=== PATIENT | female | born 1955 | race African-American/Black ===

== ENCOUNTER 2018-08-13 09:36 | Emergency (ER) | payer OTHER ==
[~2018-08-13] VITALS: Ht 167.6 cm; Wt 109.1 kg
[~2018-08-13 09:36] MED LIST: AMOXICILLIN/CLA1 TA1 PO; AUGMENTIN 250 M1 TAB PO; HCTZ 25MG TAB25 MG PO; NORCO 325 MG-51 TAB PO; NORVASC 10MG10 MG PO
[2018-08-13 09:40] VITALS: TEMP 97.9
[2018-08-13] MEDS ORDERED: TOPROL XL 50MG50 MG PO (09:52)
[2018-08-13] MEDS ORDERED: HCTZ 25MG TAB25 MG PO (09:52)
[2018-08-13] MEDS ORDERED: VITAMIN D 1001000 IU PO (09:53)
[2018-08-13] MEDS ORDERED: PRENATAL MVI PO (09:53)
[2018-08-13] MEDS ORDERED: LIPITOR20 MG PO (09:54)
[2018-08-13] MEDS ORDERED: ASPIRIN 81M81 MG/TA2 PO (09:55)
[2018-08-13] MEDS ORDERED: ALLEGRA 60MG TA60 MG PO (09:55)
[2018-08-13] MEDS ORDERED: ANTIVERT 12.512.5 MG PO (09:56)
[2018-08-13 10:27] LABS: BASO % 0.4 % (0.0-2.0); EOS # 0.2 (0.0-0.7); EOS % 3.4 % (0-4.0); GRAN # 3.5 (1.4-6.5); GRAN % 70.6 % (42.2-75.2); HEMATOCRIT 39.5 % (37.0-47.0); HEMOGLOBIN 12.6 g/dl (12.5-16.0); LYMPH # 0.9 (1.2-3.4); LYMPH % 18.4 % (20.0-51.0); MEAN CELL VOLUME 76 fl (80.0-100.0); MEAN CORPUSCULAR HEMOGLOBIN 24 pg (27.0-31.0); MEAN CORPUSCULAR HGB CONC 32 g/dl (33.0-37.0); MEAN PLATELET VOLUME 10.7 fl (7.4-10.4); MONO # 0.4 (0.1-0.6); PLATELET COUNT 251 K/mm3 (130-400); RED BLOOD COUNT 5.22 M/mm3 (4.10-5.30); REDCELL DISTRIBUTION WIDTH-CV 14.7 % (11.5-14.5)
[2018-08-13 10:34] LABS: ALBUMIN 3.6 gm/dL (3.5-5.0); BILIRUBIN,TOTAL 0.6 mg/dL (0.0-1.0); CALCIUM 9.3 mg/dL (8.4-10.2); POTASSIUM 3.3 mmol/L (3.4-5.0); TOTAL PROTEIN 7.3 gm/dL (6.4-8.2)
[2018-08-13 10:55] LABS: C-REACTIVE PROTEIN 0.9 mg/dL (0.0-0.9)
[2018-08-13] MEDS ORDERED: ANTIVERT 25MG25 MG PO ×2 (11:35)
[2018-08-13 11:55] VITALS: BP 142/93; PULSE 72
[2018-08-16] MEDS ORDERED: ANTIVERT 12.512.5 MG PO (11:03)
== END 2018-08-13 12:00 | disposition home or self-care (01) ==
LOC: COL.ER 09:36
PROVIDERS: Physician Assistant
DX: R42 Dizziness and giddiness (principal); Z98.51 Tubal ligation status; Z79.82 Long term (current) use of aspirin
CPT/HCPCS: J2060; J2405

== ENCOUNTER 2020-11-01 03:40 | Emergency (ER) | payer OTHER ==
[~2020-11-01] VITALS: Ht 167.6 cm; Wt 104.5 kg
[~2020-11-01 03:40] MED LIST changes: +ALLEGRA 60MG TA60 MG PO; +ANTIVERT 12.512.5 MG PO; +ANTIVERT 25MG25 MG PO; +ASPIRIN 81M81 MG/TA2 PO; +LIPITOR20 MG PO; +PRENATAL MVI PO; +TOPROL XL 50MG50 MG PO; +VITAMIN D 1001000 IU PO
[2020-11-01 03:57] VITALS: TEMP 98
[2020-11-01 04:43] LABS: BASO % 0.5 % (0.0-2.0); EOS # 0.6 (0.0-0.7); GRAN # 3.2 (1.4-6.5); GRAN % 56.8 % (42.2-75.2); HEMATOCRIT 39.8 % (37.0-47.0); HEMOGLOBIN 12.7 g/dl (12.5-16.0); LYMPH # 1.2 (1.2-3.4); LYMPH % 21.6 % (20.0-51.0); MEAN CELL VOLUME 75 fl (80.0-100.0); MEAN CORPUSCULAR HEMOGLOBIN 24 pg (27.0-31.0); MEAN CORPUSCULAR HGB CONC 32 g/dl (33.0-37.0); MEAN PLATELET VOLUME 11.1 fl (7.4-10.4); MONO # 0.6 (0.1-0.6); MONO % 10.9 % (1.7-9.3); PLATELET COUNT 307 K/mm3 (130-400); RED BLOOD COUNT 5.33 M/mm3 (4.10-5.30); REDCELL DISTRIBUTION WIDTH-CV 14.8 % (11.5-14.5)
[2020-11-01 04:53] LABS: ALBUMIN 3.7 gm/dL (3.5-5.0); BILIRUBIN,TOTAL 0.4 mg/dL (0.0-1.0); CALCIUM 9.2 mg/dL (8.4-10.2); CREATININE, serum 0.83 (0.52-1.25); POTASSIUM 3.7 mmol/L (3.4-5.0); TOTAL PROTEIN 7.5 gm/dL (6.4-8.2)
[2020-11-01 05:17] LABS: MUCOUS Present /lpf; PH 6 (5-8); SQUAMOUS EPITHELIAL 0-2 /hpf; URINE APPEARANCE Clear; URINE BACTERIA Rare /hpf; URINE BILIRUBIN Negative (NEGATIVE); URINE BLOOD Negative (NEGATIVE); URINE COLOR Straw; URINE GLUCOSE Negative (NEGATIVE); URINE KETONE Negative (NEGATIVE); URINE LEUKOCYTE ESTERASE Trace (NEGATIVE); URINE NITRATE Negative (NEGATIVE); URINE PROTEIN(semi-quant) Negative (NEGATIVE); URINE RBC 0-2 /hpf; URINE UROBILINOGEN Negative (NEGATIVE); URINE WBC 0-2 /hpf
[2020-11-01 05:19] LABS: COLLECTION METHOD CLEAN CATCH
[2020-11-01] MEDS ORDERED: MOTRIN 600600 MG/TAB PO (07:38)
[2020-11-01] MEDS ORDERED: LIDODERM 5% PATC1 EA TP (07:38)
[2020-11-01] MEDS ORDERED: TYLENOL 325MG325 MG PO (07:38)
[2020-11-01 07:47] VITALS: BP 141/88; PULSE 71
[2020-11-01] MEDS ORDERED: ZOFRAN ODT4 MG PO (07:54)
== END 2020-11-01 08:21 | disposition home or self-care (01) ==
LOC: COL.ER 03:40
PROVIDERS: Emergency Medicine
DX: S39.012A Strain of muscle, fascia and tendon of lower back, initial encounter (principal); R59.0 Localized enlarged lymph nodes; X58.XXXA Exposure to other specified factors, initial encounter
CPT/HCPCS: J1885; J2270; J2405; J7030; Q9967

== ENCOUNTER 2023-07-07 08:15 | Outpatient (RCR) | payer MEDICARE, OTHER ==
[~2023-07-07 08:15] MED LIST changes: +LIDODERM 5% PATC1 EA TP; +MOTRIN 600600 MG/TAB PO; +TYLENOL 325MG325 MG PO; +ZOFRAN ODT4 MG PO
== END 2023-07-11 | disposition home or self-care (01) ==
LOC: WSPT
DX: M25.561 Pain in right knee (principal); G89.29 Other chronic pain